=== PATIENT | female | born 2000 | race Caucasian/White ===

== ENCOUNTER → 2024-11-19 | Outpatient (REF) | payer MEDICAID ==
[2024-11-20 16:00] LABS: Trichomonas vaginalis (AMP) NOT DETECTED (NEGATIVE)
[2024-11-20 16:24] LABS: GC DNA AMPLIFICATION NEGATIVE (NEGATIVE)
== END ==
LOC: M SFHCPLAZ 10:04
PROVIDERS: ATTEND Family Medicine
DX: Z11.9 Encounter for screening for infectious and parasitic diseases, unspecified (principal); Z12.4 Encounter for screening for malignant neoplasm of cervix